=== PATIENT | female | born 1995 | race Caucasian/White ===

== ENCOUNTER 2023-02-05 00:50 | Emergency (ER) | payer MEDICAID, SELFPAY ==
[2023-02-05 00:43] VITALS: BP 113/77; PULSE 88; RESP 16; TEMP 36.9; O2SAT 96
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
[2023-02-05 01:40] LABS: Lithium 0.8 mmol/l (0.6-1.2)
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
[2023-02-05 01:54] LABS: ETHANOL BLOOD < 3.0 mg/dL (<10); HCG Quant, Pregnancy < 1 mIU/mL (1-3)
[2023-02-05] MEDS: Ketorolac 15 MG/ML VIAL IVP (02:36)
[2023-02-05] MEDS: Acetaminophen 325 MG TAB 650 MG PO (02:36)
[2023-02-05 02:37] VITALS: BP 112/75; PULSE 72; RESP 14; O2SAT 99
--- NOTE | 2023-02-05 06:40 | NUR.NOTE ---
Referral to Care Management to help get patient with [facility] resources sooner rather than later.Nursing Note:
== END 2023-02-05 02:43 | disposition home or self-care (01) ==
PROVIDERS: Emergency Provider Student in an Organized Health Care Education/Training Program
DX: S00.83XA Contusion of other part of head, initial encounter (principal); V47.0XXA Car driver injured in collision with fixed or stationary object in nontraffic accident, initial encounter
CPT/HCPCS: 36415; 96374; 99284; 70450; 70486; 80178; 80320; 84702; J1885

== ENCOUNTER 2023-06-17 20:24 | Outpatient (REF) | payer MEDICAID, SELFPAY ==
[2023-06-17 18:40] LABS: Abs Immature Grans 0.02 10^3/uL (0.0-0.06); Absolute Basophil Count 0.05 10^3/uL (0.0-0.2); Absolute Eosinophil Count 0.17 10^3/uL (0.0-0.7); Absolute Lymphocyte Count 2.67 10^3/uL (1.2-3.4); Absolute Monocyte Count 0.41 10^3/uL (0.1-0.8); Absolute Neutrophil Count 5.45 10^3/uL (1.2-6.7); Basophils % 0.6; Eosinophils % 1.9; HCT 41.1 % (36.0-46.0); HGB 13.3 g/dL (11.2-15.7); Immature Grans % 0.2; Lymphocytes % 30.4; MCH 31.4 pg (27.0-33.0); MCHC 32.4 % (32.0-36.0); MCV 97 fL (80-95); MPV 10.2 fL (8.0-11.0); Monocytes % 4.7; Neutrophils % 62.2; Platelet Count 318 10^3/uL (130-400); RBC 4.23 10^6/uL (3.93-5.22); RDW 12.1 % (11.7-14.6); RDW-SD 43.4 fL; WBC 8.77 10^3/uL (4.4-10.8)
[2023-06-17 19:03] LABS: Lithium 0.6 mmol/l (0.6-1.2)
[2023-06-17 19:41] LABS: Hemoglobin A1C 4.9 % (<5.7)
[2023-06-17 19:45] LABS: ALT 17 U/L (14-59); AST 20 U/L (15-37); Albumin 4.2 g/dL (3.4-5.0); Alkaline Phosphatase 68 U/L (46-116); Anion Gap 7.4 mmol/L (3-11); BUN 5 mg/dL (7-18); Bilirubin, Total 0.5 mg/dL (0.2-1.0); CO2 26.6 mmol/L (21.0-32.0); CREATININE 0.7 mg/dL (0.55-1.02); Calcium 9.1 mg/dL (8.5-10.1); Chloride 106 mmol/L (98-107); Estimated GFR 119.99 (mL/min/1.73m2); FREE T4 0.94 ng/dL (0.76-1.46); Glucose 99 mg/dL (74-106); Potassium 3.9 mmol/L (3.5-5.1); Sodium 140 mmol/L (136-145); TSH 2.41 uIU/mL (0.36-3.74); Total Protein 7.4 g/dL (6.4-8.2)
== END 2023-06-17 20:25 | disposition home or self-care (01) ==
LOC: NCHCN 20:24
PROVIDERS: Visit Provider Physician Assistant
DX: F31.89 Other bipolar disorder (principal); Z79.899 Other long term (current) drug therapy; Z51.81 Encounter for therapeutic drug level monitoring
CPT/HCPCS: 80053; 80178; 83036; 84439; 84443; 85025